=== PATIENT | male | born 1955 | race Caucasian/White ===

== ENCOUNTER 2022-12-28 16:40 | Outpatient (CLI) | payer SELFPAY ==
--- NOTE | ~2022-12-28 | XR_ITS ---
EXAMINATION: XR_RIBSBI_CR DATE: 12/28/2022 17:04 INDICATION: Bilateral rib pain. TECHNIQUE: 2 views of the right ribs and 2 views of the left ribs on a total of 6 radiographs were ob tained. COMPARISON: None. FINDINGS: There is no pneumonia, pleural effusion, or pneumothorax. The heart size is normal. There a re changes of anterior and posterior fusion procedures in cervicothoracic spine. There are acute/suba cute fractures of right fifth-ninth ribs. There are old healed left rib fractures. There are acute/pelayo bacute fractures of left fifth-eighth ribs. IMPRESSION: 1. Bilateral acute/subacute rib fractures. Reviewed, dictated and finalized at location E.
== END 2022-12-28 16:41 | disposition home or self-care (01) ==
LOC: CHSIMG 16:45
PROVIDERS: PCP Family Medicine; Visit Provider Family Medicine
DX: R07.81 Pleurodynia (principal); S22.43XA Multiple fractures of ribs, bilateral, initial encounter for closed fracture
CPT/HCPCS: 71110

== ENCOUNTER 2023-10-06 08:31 | Outpatient (CLI) | payer MEDICARE, SELFPAY ==
--- NOTE | ~2023-10-06 | XR_ITS ---
XR_RIBSBI_CR Ordering provider: Froylan Duron, History: . hx of multiple Fractures of ribs, bilateral, sequela . Comparison: None. FINDINGS: BONES: Old ribs fractures are seen in the left 6, and eighth ribs. Possibility of fracture in the lef t seventh rib is not excluded. Rib fractures which are healed are also seen in the right sixth and se venth rib. LUNGS: No effusions or infiltrates. No pneumothorax. Prominent bronchovascular markings are noted bilaterally. SOFT TISSUES: Normal. Degenerative changes of the spine. IMPRESSION: Old healed fractures bilaterally. Possible acute fracture in the left seventh rib. Clinical correlation advised. Reviewed, dictated and finalized at location A.
== END 2023-10-06 08:32 | disposition home or self-care (01) ==
PROVIDERS: PCP Family Medicine; Visit Provider Family Medicine
DX: S22.43XS Multiple fractures of ribs, bilateral, sequela (principal); M48.061 Spinal stenosis, lumbar region without neurogenic claudication; Z87.81 Personal history of (healed) traumatic fracture
CPT/HCPCS: 71110

== ENCOUNTER 2023-10-13 08:55 | Outpatient (CLI) | payer MEDICARE, SELFPAY ==
--- NOTE | ~2023-10-13 | MR_ITS ---
EXAMINATION: MR shoulder LT wo con DATE: 10/13/2023 10:41 INDICATION: Left shoulder injury. TECHNIQUE: Magnetic resonance imaging (MRI) of the left shoulder was performed without intravenous co ntrast. COMPARISON: None. FINDINGS: Coracoacromial arch: The acromion undersurface is curved in morphology with anterior hook (type III). There is severe acro mioclavicular joint osteoarthritis including inferiorly directed osteophytes. There is severe subacro mial/subdeltoid bursitis. Rotator cuff: There is a full-thickness tear of supraspinatus tendon measuring 15 mm anterior to posterior by 27 mm proximal to distal. There is severe infraspinatus tendinopathy. There is mild teres minor tendinopat hy. There is moderate subscapularis tendinopathy. There is no asymmetric fatty atrophy of the rotator cuff muscle bellies. Biceps tendon and glenoid labrum: Biceps tendon is in bicipital groove. There is a complete tear of intra-articular biceps tendon. Ther e is degenerative tearing of the glenoid labrum. Fluid: There is a moderate-sized glenohumeral joint effusion. Bones/cartilage: There is posterior sloping of the glenoid. There is full-thickness cartilage loss of glenoid anteroin feriorly. There is partial-thickness cartilage loss of humeral head. IMPRESSION: 1. Full-thickness rotator cuff tear. 2. Severe glenohumeral joint chondrosis. 3. Severe acromioclavicular joint osteoarthritis. 4. Complete tear of intra-articular biceps tendon. 5. Moderate sized glenohumeral joint effusion and severe subacromial/subdeltoid bursitis. Reviewed, dictated and finalized at location E.
--- NOTE | ~2023-10-13 | MR_ITS ---
EXAMINATION: MR lumbar spine wo con DATE: 10/13/2023 10:41 INDICATION: Low back pain radiating to the buttocks and legs. TECHNIQUE: Magnetic resonance imaging (MRI) of the lumbar spine was performed without intravenous con trast. COMPARISON: None FINDINGS: There is 13 degrees levoscoliosis of lumbar spine. There is 3 mm retrolisthesis of L1 on L2 . There is mild chronic anterior wedging of T12 vertebral body. There is mildly decreased disc height from L1-L2 through L4-L5 and severely decreased disc height at L5-S1. There is ligamentum flavum hyp ertrophy at the disc levels from L1-L2 through L4-L5. The distal spinal cord signal intensity is norm al. The conus medullaris is at L1-L2. The following disc levels are specifically discussed: L1-L2: The disc is bulging and has an annular fissure. There is severe bilateral facet joint osteoart hritis. There is mild bilateral neural foraminal stenosis. There is mild central canal stenosis. L2-L3: The disc is bulging and has an annular fissure. There is mild bilateral facet joint osteoarthr itis. There is mild bilateral neural foraminal stenosis. There is mild central canal stenosis. L3-L4: The disc is bulging and has an annular fissure. There is moderate bilateral facet joint osteoa rthritis. There is mild bilateral neural foraminal stenosis. There is mild central canal stenosis. L4-L5: The disc is bulging and has an annular fissure. There is moderate bilateral facet joint osteoa rthritis. There is moderate bilateral neural foraminal stenosis. There is mild central canal stenosis . L5-S1: The disc is bulging and has an annular fissure. There is severe bilateral facet joint osteoart hritis. There is severe right and moderate left neural foraminal stenosis. There is mild central iraj l stenosis. IMPRESSION: 1. Severe lower lumbar spondylosis. 2. Lumbar levoscoliosis. Reviewed, dictated and finalized at location E.
== END 2023-10-13 08:56 | disposition home or self-care (01) ==
PROVIDERS: PCP Family Medicine; Visit Provider Family Medicine
DX: M48.061 Spinal stenosis, lumbar region without neurogenic claudication (principal); M75.102 Unspecified rotator cuff tear or rupture of left shoulder, not specified as traumatic; M94.212 Chondromalacia, left shoulder; M19.012 Primary osteoarthritis, left shoulder; S46.212A Strain of muscle, fascia and tendon of other parts of biceps, left arm, initial encounter; M25.412 Effusion, left shoulder; M75.52 Bursitis of left shoulder; M43.06 Spondylolysis, lumbar region; M41.86 Other forms of scoliosis, lumbar region
CPT/HCPCS: 72148; 73221

== ENCOUNTER 2023-12-24 12:40 | Emergency (ER) | payer MEDICARE, SELFPAY ==
[2023-12-24] VITALS (34 sets, daily range): BP systolic 125–154; BP diastolic 74–103; PULSE 73–97; RESP 16–26; TEMP 37; O2SAT 97–100
--- NOTE | ~2023-12-24 | XR_ITS ---
EXAMINATION: XR chest 1V portable DATE: 12/24/2023 14:55 INDICATION: Chest pain and shortness of breath TECHNIQUE: frontal view of the chest was obtained. COMPARISON: Rib radiographs dated 10/06/2023 FINDINGS: Primarily streaky opacities in the bilateral lower lungs which could represent atelectasis or pneumon ia. Mild elevation the left hemidiaphragm. No pleural effusion or pneumothorax. Cardiomegaly. A few o ld bilateral rib fractures. Partially visualized this presentation for combined instrumented anterior and posterior lower cervical spinal fusion. Bilateral glenoid hypoplasia. IMPRESSION: 1. Streaky opacities in bilateral lower lung zones which could represent atelectasis or pneumonia. Reviewed, dictated and finalized at location A. IMPRESSION: 1. Streaky opacities in bilateral lower lung zones which could represent atelec tasis or pneumonia.
--- NOTE | ~2023-12-24 | CT_ITS ---
EXAMINATION: CTA chest PE protocol DATE: 12/24/2023 16:25 INDICATION: Chest pain. Shortness of breath. TECHNIQUE: Computed tomography (CT) pulmonary angiogram of the chest was performed with 100 mL Omnipa que-350 intravenous contrast. Additional 3D reconstructions utilizing coronal maximum intensity proje ction (MIP) were performed. Automated exposure control and iterative reconstruction technique were em ployed. The dose-length product was 507.60 mGy-cm. COMPARISON: None FINDINGS: Suboptimal contrast opacification of the pulmonary arteries. There are however multiple pulmonary art erial filling defects consistent with pulmonary embolism. These include in the posterior and lateral basilar segmental pulmonary arteries of the right lower lobe, the lobar and anterior and apical subse gmental pulmonary arteries of the right upper lobe, the posterior segmental pulmonary left upper lobe and extending from the origin of the lingular pulmonary artery into the left lower lobar pulmonary a rtery and the posterior and lateral segmental pulmonary arteries. There is small pleural-based region of consolidation at the anterobasilar segment of the right lower lobe adjacent to an old healed rib fracture and with corresponding architectural distortion indicating volume loss and favoring round at electasis. There are several scattered small round noncalcified pulmonary nodules throughout both lungs with ran dom distribution the largest measuring 10 mm at the lingula which are suspicious for metastatic disea se. No pulmonary edema or pleural effusion. Heart size is normal. No leftward bowing of the ventricul ar septum to suggest right heart strain. No pericardial effusion. Small sliding-type hiatal hernia wi th suggestion of possible wall thickening. There are also few surrounding paraesophageal lymph nodes largest measuring 8mm in maximal short axis diameter which could be reactive or metastatic. There are multiple low-attenuation lesions scattered throughout the liver several which are completel y well-defined suggesting hepatic cysts although there is a less well-defined 7-8 cm masslike region of heterogeneous decreased attenuation in segment 4A which is more concerning for malignancy either p rimary or metastatic. There are bilateral renal cysts the larger on the left measuring 2.3 cm. There are few mildly prominent gastrohepatic lymph nodes which could simply be reactive or metastatic. There are a few chronic compression fractures in the thoracic spine. Is also a combined estimated ant erior and posterior spinal fusion with bilateral vertical rods extending cephalad from bilateral pedi zuleyma screws at T1 and anterior plate and screws beginning at C7 and extending cephalad beyond C5. IMPRESSION: 1. Bilateral pulmonary emboli with moderate clot burden. 2. Multiple scattered bilateral pulmonary nodules measuring up to 1 cm which are concerning for metas tatic disease. 3. Small sliding-type hiatal hernia with suggestion of wall thickening of the intrathoracic portion s tomach versus distal esophagus and would consider further evaluation with endoscopy to exclude malign faviola. 4. Multiple low-attenuation lesions scattered throughout the liver, many well-defined and likely repr esenting hepatic cysts although they're also a few more ill-defined masslike regions of decreased att enuation the largest measuring 7-8 cm which is suspicious for malignancy either primary or metastatic . Consider ultrasound-guided liver biopsy. 5. Mild lower paraesophageal and gastrohepatic lymphadenopathy which could be reactive or metastatic. Reviewed, dictated and finalized at location A. IMPRESSION: 1. Bilateral pulmonary emboli with moderate clot burden. 2. Multiple scattered bilateral pulmonary nodules measuring up to 1 cm which ar e co
--- NOTE | 2023-12-24 13:31 | ED.SOB ---
HPI - SOB/Dyspnea General Chief Complaint: Shortness of Breath/Dyspnea Stated Complaint: leg swelling and shortness of breath Source: patient Mode of arrival: ambulatory Limitations: no limitations History of Present Illness HPI Narrative: 68-year-old male with a history of osteogenesis imperfecta with multiple rib fractures, sciatica, diagnosed with COVID 2 weeks ago presents to the ED with a 3 day history of -- shortness of breath -- left sided chest pain at rest without any radiation. Pain is currently rated as 4/10. -- Bilateral leg swelling. patient had been taking thiazide diuretics which he quit taking since he had COVID no fever or chills. No throat pain. No nasal congestion. No cough or sputum production MD elicited complaint: shortness of breath Onset (ago): day(s) ( 3 days) Context: recent illness ( diagnosed with COVID 2 weeks ago) Timing: intermittent Severity: mild Exacerbating factors: exertion Relieving factors: nothing Associated symptoms: chest pain Treatment prior to arrival: none Related Data Allergies Allergy/AdvReac Type Severity Reaction Status Date / Time No Known Allergies Allergy Verified 12/24/23 16:17 Review of Systems Review of Systems: All systems reviewed & are unremarkable except as noted in HPI and below Constitutional: Constitutional: Reports as per HPI and Reports no additional constitutional complaints Eyes: Eyes: Reports as per HPI and Reports no additional eye complaints ENT: Reports system reviewed and no additional complaints, except as documented and Reports as per HPI Cardiovascular: Cardiovascular: Reports as per HPI, Reports no additional cardiovascular complaints and Reports chest pain Respiratory: Respiratory: Reports as per HPI, Reports no additional respiratory complaints and Reports dyspnea Gastrointestinal: Gastrointestinal: Reports as per HPI and Reports no additional gastrointestinal complaints Genitourinary: Genitourinary: Reports no additional male genitourinary complaints and Reports as per HPI Musculoskeletal: Musculoskeletal: Reports no additional musculoskeletal complaints, Reports as per HPI and Reports back pain Integumentary/Breasts: Skin/Breast: Reports system reviewed and no additional complaints, except as docu and Reports as per HPI Neurologic: Reports system reviewed and no additional complaints, except as documented and Reports as per HPI Psychiatric: Psychiatric: Reports no additional psychiatric complaints and Reports as per HPI Endocrine: Endocrine: Reports no additional endocrine complaints and Reports as per HPI Hematologic/Lymphatic: Hematologic/Lymphatic: Reports no additional hematologic/lymphatic complaints and Reports as per HPI Allergic/Immunologic: Allergic/Immunologic: Reports no additional allergic/immunologic complaints and Reports as per HPI [facility] Past Medical History Medical History (Updated 12/24/23 @ 17:30 by Zack Tatum MD) COVID Hypertension Osteogenesis imperfecta Social History Social History (Updated 12/24/23 @ 14:00 by Zack Tatum MD) Social History: nonsmoker nonalcoholic no drug abuse Exam Narrative: vitals are stable Const: General: no acute distress Orientation/consciousness: patient oriented x3 HENMT: Head: normal to inspection Ears: external ears normal Face/Nose/Sinus: Normal external nose present Face and sinus: normal facial exam Mouth: Yes Normal oral and palatal mucosa present Throat: posterior oropharynx normal Eyes: Conjunctivae: conjunctivae normal Pupils: Equal, round and reactive pupils present EOM: EOMs intact bilaterally Direct Ophthalmoscopy: no photophobia Neck: Neck: normal visual inspection, no lymphadenopathy and no meningeal signs Chest: Chest palpation & inspection: normal inspection of the chest Resp: Effort & Inspection: normal respiratory effort Auscultation: clear to auscultation bilaterally Cardio: Rate: regular rate Rhythm: regula
--- NOTE | 2023-12-24 14:01 | ECG_ITS ---
Test Date: 2023-12-24 14:14:07 Measurements Intervals [place] Rate: 78 P: 55 UT: 138 QRS: -7 QRSD: 96 T: 54 QT: 387 QTc: 442 Interpretive Statements SINUS RHYTHM BASELINE ARTIFACT- I, II, III, AVR, AVL NORMAL ECG No previous ECG available for comparison Electronically Signed On 12-24-2023 17:38:09 CDT by Davin Guevara D.O.
[2023-12-24 14:09] LABS: Basophils Absolute Auto 0.08 K/mm3 (0.00-0.10); Basophils Percent Auto 0.7 % (0.0-1.0); Eosinophils Absolute Auto 0.32 K/mm3 (0.02-0.50); Eosinophils Percent Auto 2.8 % (1.0-6.0); Hematocrit 38.1 % (37.0-46.0); Hemoglobin 12.6 g/dL (12.4-15.3); Immature Granulocyte Absolute 0.11 K/mm3 (0.00-0.00); Lymphocytes Absolute Auto 1.39 K/mm3 (1.10-4.50); Lymphocytes Percent Auto 12.3 % (18.0-42.0); Mean Corpuscular HGB Conc 33.1 g/dL (32-36); Mean Corpuscular Hemoglobin 27.9 pg (27.0-31.0); Mean Corpuscular Volume 84.3 fL (78.0-102.0); Mean Platelet Volume 9.5 fl (8.7-11.0); Monocytes Absolute Auto 0.91 K/mm3 (0.10-0.90); Neutrophils Absolute Auto 8.51 K/mm3 (1.70-7.20); Neutrophils Percent Auto 75.2 % (50.0-70.0); Platelet Count Result 311 K/mm3 (150-420); Red Blood Count 4.52 M/mm3 (4.70-6.10); Red Cell Distribution Width 12.1 % (11.6-14.4); White Blood Count 11.3 K/mm3 (4.8-10.8)
[2023-12-24 14:26] LABS: Alanine Aminotransferase 73 U/L (16-63); Albumin Level 3.1 g/dL (3.4-5.0); Alkaline Phosphatase 416 U/L (46-116); Anion Gap 8 mmol/L (4-12); Aspartate Amino Transferase 79 U/L (15-37); Bilirubin,Total 0.9 mg/dL (0.00-1.00); Blood Urea Nitrogen 12 mg/dL (7-18); Calcium 8.8 mg/dL (8.5-10.1); Carbon Dioxide 30 mmol/L (21-32); Chloride 94 mmol/L (98-108); Estimated Glomerular Filt Rate > 60; Glucose 130 mg/dL (70-99); NT Pro B Type Natriuretic Pept 145 pg/mL (0-125); Osmolality Calculated 275 mOsm/kg (285-295); Potassium 3.6 mmol/L (3.5-5.1); Sodium 132 mmol/L (136-145); Total Protein 7.4 g/dL (6.4-8.2)
[2023-12-24 14:28] LABS: INR 1.3; Partial Thromboplastin Time 27.1 Sec (23.9-30.70); Prothrombin Time 13.5 Seconds (9.50-12.1)
[2023-12-24 14:29] LABS: Troponin I 102.3 ng/L (0.00-60.4)
[2023-12-24 14:52] LABS: SARS-CoV-2 RNA PCR Negative (Negative)
[2023-12-24 14:53] LABS: Influenza A QL RT-PCR Negative (Negative); Influenza B QL RT-PCR Negative (Negative); RSV RNA, RT-PCR Negative (Negative)
[2023-12-24] MEDS: LACTATED RINGERS 500 ML 999 ML IV CONT (16:30)
--- NOTE | 2023-12-24 16:40 | ECG_ITS ---
Test Date: 2023-12-24 16:54:34 Measurements Intervals [place] Rate: 80 P: 62 MD: 135 QRS: 5 QRSD: 91 T: 34 QT: 364 QTc: 421 Interpretive Statements SINUS RHYTHM BASELINE ARTIFACT- I, II, III, AVR, AVL, AVF, V1-V6 NORMAL ECG Compared to ECG 12/24/2023 14:14:07 No significant changes Electronically Signed On 12-24-2023 17:39:16 CDT by Davin Guevara D.O.
[2023-12-24 17:14] LABS: Troponin I 91.5 ng/L (0.00-60.4)
[2023-12-24] MEDS: APIXABAN 2.5 MG TABLET 10 MG PO (17:53)
== END 2023-12-24 18:00 | disposition left against medical advice (07) ==
PROVIDERS: Emergency Provider Internal Medicine Critical Care Medicine; PCP Family Medicine
DX: R91.8 Other nonspecific abnormal finding of lung field (principal); K76.9 Liver disease, unspecified; M79.89 Other specified soft tissue disorders; I26.99 Other pulmonary embolism without acute cor pulmonale; Z20.822 Contact with and (suspected) exposure to COVID-19; I10 Essential (primary) hypertension
CPT/HCPCS: 36415; 71045; 71275; 80053; 83880; 84484; 85025; 85380; 85610; 85730; 87637; 93005; 96360; 99284; A9270; J7120; Q9967

== ENCOUNTER 2024-01-05 16:45 | Emergency (ER) | payer MEDICARE, SELFPAY ==
--- NOTE | ~2024-01-05 | XR_ITS ---
XR wrist LT min 3V Ordering provider: Vipin Davis MD History: . Lt. wrist pain x4 days post fall . Comparison: None. FINDINGS: BONES: No acute fracture or dislocation. No definite scaphoid fracture. JOINT SPACES: Well maintained. SOFT TISSUES: Normal. IMPRESSION: No acute osseous abnormality left wrist. Reviewed, dictated and finalized at location A.
--- NOTE | ~2024-01-05 | XR_ITS ---
XR knee RT 3V Ordering provider: Vipin Davis MD History: . Rt. knee pain x4 days post fall . Comparison: None. FINDINGS: BONES: No definite acute fracture or dislocation. Lucency in the medial aspect of the patella is not excluded. JOINT SPACES: Narrowing of the medial compartment. SOFT TISSUES: Normal. IMPRESSION: No definite acute osseous abnormality right knee. Lucency in the medial aspect of the patella is note d. Evaluation for tenderness in the area is advised and if clinically warranted CT is recommended. Mild osteoarthritic changes. Reviewed, dictated and finalized at location A. IMPRESSION: No definite acute osseous abnormality right knee. Lucency in the medial aspect of the patella is noted. Evaluation for tenderness in the area is advised and i f clinically warranted CT is recommended. Mild osteoarthritic changes.
[2024-01-05 16:50] VITALS: BP 98/68; PULSE 97; RESP 18; TEMP 35.9; O2SAT 95
--- NOTE | 2024-01-05 17:41 | ED.UPPEXIN ---
HPI - Extremity Injury (Upper) General Chief Complaint: Extremity Injury, Upper Stated Complaint: Left wrist pain, Right knee pain Time Seen by Provider: 01/05/24 16:54 Source: patient and family Mode of arrival: ambulatory Limitations: no limitations History of Present Illness HPI narrative: this is 68 year old male with a history of metastatic cancer/ liver cancer on hospice had a fall in his bathroom approximately 4 days ago and injured his left wrist and right knee, has swelling and tenderness in the wrist and knee no other injuries noted. There is no chest pain no shortness of breath no loss of consciousness no head injury. complaint: injury to: left and right Other Extremity Injury: Left: wrist ( tenderness with swelling) Other injuries: none ( right knee) Handedness: right Related Data Home Medications Medication Instructions Recorded Confirmed haloperidol lactate 2 mg/mL oral 1 mg PO Q4H PRN Agitation 01/05/24 01/05/24 concentrate hydrochlorothiazide 12.5 mg tablet 12.5 mg PO DAILY 01/05/24 01/05/24 hydrocodone 10 mg-acetaminophen 1 tablet PO BID PRN Pain 01/05/24 01/05/24 325 mg tablet hyoscyamine sulfate 0.125 mg 0.125 mg PO Q4H PRN Secretions 01/05/24 01/05/24 sublingual tablet lorazepam 1 mg tablet 1 mg PO Q4H PRN Anxiety 01/05/24 01/05/24 meloxicam 15 mg tablet 15 mg PO DAILY 01/05/24 01/05/24 morphine concentrate 100 mg/5 mL 5 mg PO Q2H PRN Pain 01/05/24 01/05/24 (20 mg/mL) oral solution Allergies Allergy/AdvReac Type Severity Reaction Status Date / Time No Known Allergies Allergy Verified 01/05/24 16:54 Review of Systems Review of Systems: All systems reviewed & are unremarkable except as noted in HPI and below PMFSH Past Medical History Medical History COVID Hypertension Osteogenesis imperfecta Social History Social History Social History: nonsmoker nonalcoholic no drug abuse Exam Const: General: no acute distress Nutritional Appearance: thin Limitations: physical limitations Neck: Neck: normal visual inspection, no lymphadenopathy and no meningeal signs Chest: Chest palpation & inspection: normal inspection of the chest Resp: Effort & Inspection: normal respiratory effort Auscultation: clear to auscultation bilaterally Cardio: Rate: regular rate Rhythm: regular rhythm GI: GI Palp: Yes Soft to palpation Auscultation: normal bowel sounds Skin: General skin exam: normal color Rashes: no rashes Neuro: General: patient oriented x3, moves all extremities, no meningeal signs and no focal motor deficits Extrem: General: edema Course Course Emergency Course: Patient currently on hospice and has pain medication that he takes at home, x-rays performed showed no acute fractures advised patient with the right knee may require an MRI /CT scan to follow up with his primary on Sunday take medication that he has as needed for pain, will place an Armaan wrap on his left wrist. Vital Signs Vital signs: Vital Signs Temperature 35.9 C L 01/05/24 16:50 Pulse Rate 97 01/05/24 16:50 Respiratory Rate 18 01/05/24 16:50 Blood Pressure 98/68 L 01/05/24 16:50 Pulse Oximetry 95 01/05/24 16:50 Oxygen Delivery Room Air 01/05/24 16:50 Temperature 35.9 C L 01/05/24 16:50 Pulse Rate 97 01/05/24 16:50 Respiratory Rate 18 01/05/24 16:50 Blood Pressure 98/68 L 01/05/24 16:50 Pulse Oximetry 95 01/05/24 16:50 Oxygen Delivery Room Air 01/05/24 16:50 Critical Care Time Critical Care Time Critical Care Time: No Discharge Plan Discharge Clinical Impression: Left wrist sprain, Knee sprain Patient Disposition: Home, Self-Care Condition: Stable Instructions: Antibiotic Form, Knee Sprain (ED), Wrist Sprain (ED) Additional Instructions: advised to continue pain medicine given through hospice and follow with primary on
[2024-01-05 17:50] VITALS: BP 97/66; PULSE 95; RESP 17; TEMP 36.3; O2SAT 98
== END 2024-01-05 17:50 | disposition home or self-care (01) ==
PROVIDERS: Emergency Provider Emergency Medicine; PCP Family Medicine
DX: S83.91XA Sprain of unspecified site of right knee, initial encounter (principal); M25.532 Pain in left wrist; Z79.891 Long term (current) use of opiate analgesic; Z79.899 Other long term (current) drug therapy; Z79.1 Long term (current) use of non-steroidal anti-inflammatories (NSAID); W19.XXXA Unspecified fall, initial encounter
CPT/HCPCS: 73110; 73562; 99284